=== PATIENT | male | born 1970 | race Hispanic/Latino ===

== ENCOUNTER 2019-06-19 07:53 | Emergency (ER) | payer SELFPAY ==
--- NOTE | 2019-06-19 08:22 | Emergency Department Report ---
<RALPHLILIANA ElenaJulio - Last Filed: 06/19/19 09:58> ED Psych HPI - General Chief Complaint: Psych Stated Complaint: AMS/PSYCH Time Seen by Provider: 06/19/19 08:13 Source: patient, EMS Mode of arrival: Stretcher - History of Present Illness Initial Comments: Patient is unknown to this facility, unknown age since patient is unable to provide his name and his age. Patient brought to the emergency room from a gas station by police detective. chief strategy officer was called because patient was acting strange. Patient stating that everywhere ago people are following me, the right me and not to be careful. He stated that I have a gun and I had it. Patient a dmitted that he is suicidal. During my assessment patient is very anxious and agitated. Patient is unable to give a clear statement he just kept mumbling different words. Patient is alert but unable to answer any questions straight. MD Complaint: altered mental status - Related Data Allergies Allergy/AdvReac Type Severity Reaction Status Date / Time Unable to Assess Allergy Verified 06/19/19 22:10 ED Review of Systems Comment: All other systems reviewed and negative Constitutional: denies: chills, fever Respiratory: denies: cough, shortness of breath Gastrointestinal: denies: abdominal pain, nausea, vomiting Psychiatric: anxiety, auditory hallucinations, visual hallucinations ED Past Medical Hx - Past Medical History Previous Medical History?: No - Surgical History Additional Surgical History: unknown - Social History Smoking Status: Unknown if ever smoked ED Physical Exam - General Limitations: Altered Mental Status General appearance: alert, anxious, other (agitated.) - Head Head exam: Present: atraumatic, normocephalic, normal inspection - Eye Eye exam: Present: normal appearance - ENT ENT exam: Present: normal exam, normal orophraynx - Neck Neck exam: Present: normal inspection, full ROM. Absent: tenderness, meningismus, lymphadenopathy, thyromegaly - Respiratory Respiratory exam: Present: normal lung sounds bilaterally - Cardiovascular Cardiovascular Exam: Present: regular rate, normal rhythm, normal heart sounds - GI/Abdominal GI/Abdominal exam: Present: soft, normal bowel sounds. Absent: distended, tenderness, guarding, rebound, rigid, organomegaly, mass, bruit, pulsatile mass, hernia - Back Exam Back exam: Present: normal inspection, full ROM. Absent: CVA tenderness (R), CVA tenderness (L) - Neurological Exam Neurological exam: Present: alert - Psychiatric Psychiatric exam: Present: agitated, anxious, manic, suicidal ideation. Absent: homicidal ideation - Skin Skin exam: Present: warm, intact, normal color ED Medical Decision Making - Lab Data Result diagrams: 06/19/19 08:45 06/19/19 08:45 ED Disposition Condition: Stable Referrals: PRIMARY CARE,MD [Primary Care Provider] - 3-5 Days <GREGORY MANE - Last Filed: 06/20/19 13:06> ED Review of Systems ROS: Stated complaint: AMS/PSYCH Other details as noted in HPI ED Course Vital Signs 06/19/19 06/19/19 06/20/19 08:30 20:00 01:49 Temperature 97.4 F L 97.9 F 98.4 F Pulse Rate 52 L 87 68 Respiratory 18 16 16 Rate Blood Pressure 120/80 122/65 114/68 [Left] O2 Sat by Pulse 100 99 98 Oximetry 06/20/19 08:27 Temperature 97.6 F Pulse Rate 61 Respiratory 18 Rate Blood Pressure 123/70 [Left] O2 Sat by Pulse 94 Oximetry ED Medical Decision Making - Lab Data Result diagrams: 06/19/19 08:45 06/19/19 08:45 Critical care attestation.: If time is entered above; I have spent that time in minutes in the direct care of this critically ill patient, excluding procedure time.
[2019-06-19 09:05] LABS: Basophils % (Auto) 0.3 % (0.0-1.8); Eosinophils % (Auto) 0.3 % (0.0-4.3); Hematocrit 46.8 % (35.5-45.6); Hemoglobin 16.2 gm/dl (11.8-15.2); Lymphocytes # (Auto) 1.2 K/mm3 (1.2-5.4); Lymphocytes % (Auto) 10.5 % (13.4-35.0); Mean Corpuscular HGB Conc 35 % (32-34); Mean Corpuscular Volume 92 fl (84-94); Monocytes # (Auto) 0.8 K/mm3 (0.0-0.8); Monocytes % (Auto) 7.2 % (0.0-7.3); Platelet Count 193 K/mm3 (140-440); Red Blood Count 5.08 M/mm3 (3.65-5.03); Red Cell Distribution Width 12.6 % (13.2-15.2)
[2019-06-19 09:13] LABS: BUN/Creatinine Ratio 33; Blood Urea Nitrogen 26 mg/dL (9-20); Calcium 9.7 mg/dL (8.4-10.2); Hemolysis Index 5
[2019-06-19 09:16] LABS: Albumin 4.5 g/dL (3.9-5); Bilirubin,Direct 0.4 mg/dL (0-0.2)
[2019-06-19 09:21] LABS: Benzodiazepines Screen,Urine PRESUMPTIVE NEGATIVE; Cannabinoid Screen,Urine PRESUMPTIVE NEGATIVE; Cocaine Screen,Urine PRESUMPTIVE NEGATIVE; Methadone Screen,Urine PRESUMPTIVE NEGATIVE; Opiate Screen,Urine PRESUMPTIVE NEGATIVE
[2019-06-19 09:39] LABS: Amphetamine Screen,Urine PRESUMPTIVE POSITIVE
[2019-06-19 09:43] LABS: Bacteria,Urine 1+ /HPF (Negative); Bilirubin,Urine NEG (Negative); Blood,Urine NEG (Negative); Color,Urine Yellow (Yellow); Hyaline Casts,Urine 30 /LPF; Mucus,Urine FEW /HPF; Protein,Urine <15 mg/dL mg/dL (Negative)
[2019-06-19] MEDS ORDERED: SODIUM CHLORIDE IRRI 500 ML 500 ML IR ONE (22:01)
[2019-06-20] MEDS ORDERED: ZIPRASIDONE MESYLATE 20 MG VIAL IM ONE (12:32)
[2019-06-20] MEDS ORDERED: ZIPRASIDONE MESYLATE 20 MG VIAL IM PRN (12:32)
--- NOTE | 2019-06-20 13:05 | Consultation ---
History of Present Illness - Reason for Consult Consult date: 06/19/19 Reason for consult: Mental Health Evaluation Requesting physician: LILIANA PACE - Chief Complaint Chief complaint: Drug induced Psychosis - History of Present Psychiatric Illness Per ED Provider: Patient is unknown to this facility, unknown age since patient is unable to provide his name and his age. Patient brought to the emergency room from a gas station by police reserves commander. information technology officer was called because patient was acting strange. Patient stating that everywhere ago people are following me, the right me and not to be careful. He stated that I have a gun and I had it. Patient admitted that he is suicidal. During my assessment patient is very anxious and agitated. Patient is unable to give a clear statement he just kept mumbling different words. Patient is alert but unable to answer any questions straight. HPI Psych Provider Note: Patient seen by me this A.M. with Nurse present, states his name is Harinder Nicole, and he does not know why he is here. Patient states all he could remember was running from someone planning to Kill Him. He replies "I do not remember to all subsequent questions". Per drug screen. Patient Positive for Meth MENTAL STATUS General Appearance and Behavior: Poor eye contact, not cooperative with questioning Cooperation: Not Cooperative Psychomotor Behavior: Decreased Mood: Unable to assess Affect and affective range: Congruent with stated mood Thought Process: Illogical and non goal-directed Thought Content: Paranoid and delusional Speech: Normal volume and Regular rate and rhythm Intellectual Functioning: Poor Suicidal Ideation: Declines to answer due to mental state Homicidal Ideation: Declines to answer due to mental state Impulse Control: intact Insight and Judgment: impaired insight and judgment Memory: Poor memory Attention: Normal Orientation: Alert to place only Diagnosis (1) Drug-induced psychotic disorder with delusions Current Visit: Yes Status: Acute (2) Schizoaffective disorder, bipolar type Current Visit: Yes Status: Acute (3) Methamphetamine use disorder, severe, dependence Current Visit: Yes Status: Acute RECOMMENDATIONS MEDICATIONS: Continue Olanzapine 5mg QHS for psychosis, Depakote 500mg bid for mood stabilization and Geodon 10mg IM once, and also q4h prn for agitation. Risks, benefits and alternatives of medications discussed with the patient, questions answered and consent obtained from patient. PSYCHOTHERAPY: Supportive psychotherapy provided MEDICAL: Per primary team AGILE QA TESTER: Yes DISPOSITION: Acute inpatient psychiatric hospitalization LEGAL STATUS: 1013 FOLLOW-UP: Will follow Thank you for the consult. Please contact with any questions and/or concerns. Medications and Allergies Allergies Allergy/AdvReac Type Severity Reaction Status Date / Time Unable to Assess Allergy Verified 06/19/19 22:10 Active Meds: Active Medications Olanzapine (Zyprexa) 5 mg PO QHS JOHNY Ziprasidone (Geodon) 10 mg IM Q4H PRN PRN Reason: Agitation Mental Status Exam - Vital signs Last Vital Signs Temp 97.6 F 06/20/19 08:27 Pulse 61 06/20/19 08:27 Resp 18 06/20/19 08:27 BP 123/70 06/20/19 08:27 Pulse Ox 94 06/20/19 08:27 Results Result Diagrams: 06/19/19 08:45 06/19/19 08:45 All other labs normal. Assessment and Plan - Psychiatric problem (1) Methamphetamine use disorder, severe, dependence Current Visit: Yes Status: Acute
[2019-06-21 07:30] VITALS: BP 104/73
[2019-06-21] MEDS ORDERED: LORazepam 2 MG/ML VIAL ONE (08:57)
--- NOTE | 2019-06-21 10:43 | Progress Note ---
Subjective - Reason for Consult Consult date: 06/21/19 Reason for consult: Psych follow up - Chief Complaint Chief complaint: No complaints SUBJECTIVE Patient reviewed this morning. I met him lying in bed awake. He was initially n ot responsive to questions but started talking when he was told that he is being discharged from the hospital; he immediately stated "I am suicidal, I want to hurt people and I have nowhere to go to". Patient is alert, oriented to person and place - knows he is in the hospital but claims to not know why he is here and unable to tell us his name. Shortly after my interview with him, he proceeded to have a shower and requested for a bus pass to get home. MENTAL STATUS General Appearance and Behavior: good eye contact, not cooperative with questioning Cooperation: Not Cooperative Psychomotor Behavior: Normal Mood: ok Affect and affective range: Congruent with stated mood Thought Process: goal-directed Thought Content: No hallucinations and no delusional statements Speech: Normal volume and Regular rate and rhythm Intellectual Functioning: Average Impulse Control: intact Insight and Judgment: Limited insight and judgment Attention: Normal Orientation: Alert to and oriented to person and place. Diagnosis (1) Drug-induced psychotic disorder with delusions Current Visit: Yes Status: Acute (2) Schizoaffective disorder, bipolar type Current Visit: Yes Status: Acute (3) Methamphetamine use disorder, severe, dependence Current Visit: Yes Status: Acute RECOMMENDATIONS MEDICATIONS: Will discharge home on Olanzapine 5mg QHS to help with mood and sleep Risks, benefits and alternatives of medications discussed with the patient, questions answered and consent obtained from patient. PSYCHOTHERAPY: Supportive psychotherapy provided MEDICAL: Per primary team MANAGER AUDIT: No DISPOSITION: No indication for acute inpatient psychiatric hospitalization. Continuing inpatient treatment is contraindicated as it will reinforce maladaptive behaviors. Patient encouraged to seek Substance abuse treatment. Please provide outpatient resources for substance abuse treatment. LEGAL STATUS: 1013 rescinded FOLLOW-UP: Will sign off Thank you for the consult. Please contact with any questions and/or concerns. Mental Status Exam - Vital signs Last Vital Signs Temp 96.8 F L 06/21/19 07:29 Pulse 90 06/21/19 07:29 Resp 20 06/21/19 07:29 BP 104/73 06/21/19 07:29 Pulse Ox 98 06/21/19 07:29
== END 2019-06-21 14:15 | disposition home or self-care (01) ==
LOC: EEVIPCON 07:53 → EDBD 07:53 → ED 07:53
DX: R41.82 Altered mental status, unspecified (principal)
CPT/HCPCS: 36415; 80048; 80076; 80307; 81001; 85025; 96372; 99284; J3486; 80320; 93005; 93010; G0480; J2060